=== PATIENT | male | born 1985 | race Caucasian/White ===

== ENCOUNTER 2017-01-03 08:27 | Day surgery (SDC) | payer OTHER ==
[~2017-01-03 08:27] MED LIST: CEFAZOLIN 2 GM/D5W RTU 2 GM/50 ML RTUPB IV PRN; LACTATED RINGERS 1000 ML IV PRN; LIDOCAINE 0.5% INJ-PF (5 MG/ML) 50 ML SDV SUBCUT PRN; MORPHINE SULFATE 10 MG/ML INJ IV PRN; ONDANSETRON HCL INJ/PF 4 MG/2 ML SDV IV PRN
[2017-01-03] MEDS ORDERED: BUPIVACAINE HCL 0.25 % INJ/PF (2.5 MG/1 ML) 30 ML VIAL ONE (09:47)
[2017-01-03] MEDS ORDERED: MIDAZOLAM 2 MG/2 ML INJ ONE (10:56)
[2017-01-03] MEDS ORDERED: FENTANYL CITRATE INJ/PF 100 MCG/2 ML AMPUL ONE (10:56)
[2017-01-03] MEDS ORDERED: DEXAMETHASONE SOD PHOSPHATE INJ 4 MG/1 ML VIAL ONE (10:56)
[2017-01-03] MEDS ORDERED: ONDANSETRON HCL INJ/PF 4 MG/2 ML SDV ONE (10:56)
[2017-01-03] MEDS ORDERED: PROPOFOL INJ 200 MG/20 ML VIAL IV ONE (10:57)
[2017-01-03] MEDS ORDERED: MORPHINE SULFATE 10 MG/ML INJ ONE (10:58)
[2017-01-03] MEDS ORDERED: PROMETHAZINE HCL INJ 25 MG/1 ML VIAL IV PRN (11:49)
[2017-01-03] MEDS ORDERED: MEPERIDINE HCL/PF INJ 25 MG/1 ML DISP.SYRIN IV PRN (11:49)
[2017-01-03] MEDS ORDERED: MORPHINE SULFATE 10 MG/ML INJ IV PRN ×2 (11:49→13:14)
[2017-01-03] MEDS ORDERED: DIPHENHYDRAMINE HCL 50 MG/ML VIAL IV PRN (11:49)
[2017-01-03] MEDS ORDERED: FENTANYL CITRATE INJ/PF 100 MCG/2 ML AMPUL IV PRN ×3 (11:49)
--- NOTE | 2017-01-03 12:53 | Brief Operative Note ---
BRIEF OPERATIVE REPORT DATE OF SURGERY: 01/03/17 TIME OF SURGERY: 11:30 PREOPERATIVE DIAGNOSIS: left varicocele POSTOPERATIVE DIAGNOSIS: left varicocele SURGEON: NHI OCASIO FINDINGS: subinguinal incision COMPLICATIONS: none ESTIMATED BLOOD LOSS: 3 TISSUE REMOVED OR ALTERED: none TECHNICAL PROCEDURE: left subinguinal microscopic varicocelectomy
[2017-01-03] MEDS ORDERED: OXYCODONE-ACETAMINOPHEN 5-325 MG TABLET PO PRN ×2 (13:12→13:13)
--- NOTE | 2017-01-03 14:44 | OPERATIVE REPORT E ---
Operative Report NAME: BASIA SEPULVEDA : 1985 AGE: 31Y DATE OF SURGERY: 01/03/2017 ROOM: PREOPERATIVE DIAGNOSIS: Left varicocele. POSTOPERATIVE DIAGNOSIS: Left varicocele. OPERATION: Left subinguinal microscopic varicocelectomy. SURGEON: Al Linares M.D. ANESTHESIA: General LMA. ESTIMATED BLOOD LOSS: 3 INTRAVENOUS FLUIDS: 1 liter Ringer's lactate. DRAINS/INFUSION LINES: None. COMPLICATIONS: None. CONDITION: Stable. INDICATION FOR PROCEDURE: The patient is a 31-year-old gentleman with history of inguinal hernia and hydrocele surgery as an infant bilaterally, with a left grade III varicocele and subfertility. He presents for varicocelectomy for pain and fertility purposes. PROCEDURE: The patient was identified in the preoperative holding area. The surgery with all the attendant risks and benefits were again described in detail to the patient. He confirms consent for the procedure. He is marked on the left side and given Ancef 2 grams. He was brought back to the operating room where sequential compression devices were placed. He was anesthetized under general endotracheal anesthesia. The patient was then prepared for surgery and draped in the usual sterile fashion. Surgical timeout was performed and all are in agreement at the start of the case. We started by marking the external inguinal ring. His prior inguinal surgery repair as an was directly overlying the external ring. We elected to use this same incisional scar for subinguinal approach. We marked approximately 3.5 cm incision and incised with a 15 blade scalpel. Carried dissection down through the subcutaneous tissue with Bovie electrocautery and came down right over the external ring. We cleared off the shelving edge of the external oblique fascia bluntly, and were able to clear off the fascia; however, the pole was protruding directly into the incision. We elected at this point to do it subinguinal. We grasped the cord and elevated it into the incision, and placed a Martha over a tongue depressor and used this to keep the cord elevated into the field. We opened the external spermatic fascia and then brought in the operating room microscope. Under operating microscopy, we then opened the internal spermatic fascia and then began to dissect through the cord contents. There was one large vein immediately visualized and the vas deferens was immediately visualized. With both vas deferens medially, we then thinned out the cord and brought in the Doppler. We could easily Doppler the basal artery as well as the testicular artery. We encircled the testicular artery with a vessel loop and pulled it medially to keep it out of the field, and we pulled the vas deferens along with it. We then went through the remainder of the cord. There was one other vein that was ligated and no other veins were seen throughout the cord. At this point, we were satisfied that we had performed a satisfactory removal of all veins present. At this point, we then irrigated and then performed a cord block with 10 mL of 0.25% bupivacaine plain and then placed the cord back in the scrotum. We inspected the floor of the canal, and there were no perforators seen. We then closed the Camper's and Gela's fascia with running 3-0 Vicryl, and closed the deep dermal layer with 3-0 Vicryl interrupted, and then used some more local for a total of 20 mL used in the subcutaneous tissue, then we closed the incision with running 4-0 Monocryl in a subcuticular stitch. The patient was then cleaned and skin glue was applied. We placed fluffs and scrotal support. The patient was then awakened from anesthesia and transferred to the PACU in stable condition. Plan is for discharge per PACU protocol. He will have 2 weeks of convalescent leave followed by 2 weeks of light duty, and will follow up afterwards for evaluation. DICTATING PHYSICIAN: Al Linares MD [id number] PHY#: [id number] ID: [id number] JOB#: [id number] ACCT: [id number] cc:Al Linares M.D. > MTDLoly
[2017-01-03 16:05] VITALS: BP 99/60
== END 2017-01-03 14:45 | disposition home or self-care (01) ==
LOC: OROUT 08:27
PROVIDERS: ATTEND Urology
PROC: 0VBG0ZZ Excision of Left Spermatic Cord, Open Approach (ICD-10-PCS; principal; 2017-01-03 10:30)
DX: I86.1 Scrotal varices (principal); N46.8 Other male infertility; F17.210 Nicotine dependence, cigarettes, uncomplicated; E78.5 Hyperlipidemia, unspecified; Z87.442 Personal history of urinary calculi
CPT/HCPCS: 55535; J2250; J1100; J3010; J2270; J2405; J2704; J0690; 860